=== PATIENT | male | born 1950 | race Caucasian/White ===

== ENCOUNTER → 2018-08-12 | Outpatient (CLI) | payer OTHER ==
[~2018-08-12] MED LIST: ASPIR 8181 M1 PO; CALCIUM 500 +1 EAC5 PO; CENTRUM SILVER1 EAC2 PO; ELIQUIS5 MG PO; FISH OIL 1,001000 M2 PO; FLONASE 0.05%50 MCG NASAL; HYDROCHLOROTHIA25 M2 PO; MOBIC7.5 MG PO; NORVASC5 MG PO; PRINIVIL20 MG PO; VIAGRA100 MG PO; ZOCOR20 MG PO
--- NOTE | ~2018-08-12 | SLE ---
[facility] [place] [address] POLYSOMNOGRAPHY STUDY Name: NUZHATNIKITA Room #: REG [facility]#: [id number] Admission: 08/12/18 Attend Phys: Jl Gillette MD Discharge: Date of : 46 Report #: [id number] THIS REPORT FOR: //name// CC: Jl Rice MD DATE OF SERVICE: 08/12/2018 ATTENDING PHYSICIAN: Dr. Mario Rice. The patient is a 68-year-old who weighs 213 pounds and is 73 inches tall. The patient's BMI was 28. The patient underwent sleep study at [facility]. The patient has history of paroxysmal atrial fibrillation. The patient's Gresham score is 4/24. During the night study, the patient spent 454 minutes in bed and slept for 357 minutes with a sleep efficiency of 78%. Sleep latency was 4.5 minutes with a REM latency of 63 minutes. Overall, sleep architecture showed increased stage 1 and stage 2 sleep, absent slow wave and normal REM sleep. During the night study, the patient had 3 obstructive apneas, no mixed or central apneas and 8 hypopneas. The patient's apnea index was 1.8 per hour. REM index of 0.9 per hour with a supine index of 8 per hour. The patient normally does not sleep in supine position. EKG monitoring revealed an average heart rate of 50 beats per minute with a maximum of 76 beats per minute. No sustained arrhythmias were observed. PLMS were seen at an index of 51 per hour and 3 per hour caused EEG arousals. Nocturnal oximetry study revealed an average oxygen saturation of 96% with a lowest of 89%. No clinically significant desaturation of less than 89% were observed. Due to low AHI, the patient did not meet the split night criteria for CPAP initiation. IMPRESSION: 1. No clinically significant sleep disordered breathing. The patient's AHI for the entire night was 1.8 per hour. 2. Severe periodic limb movements without any significant EEG arousals. 3. No clinically significant nocturnal hypoxia. RECOMMENDATIONS: [facility] [address] [place] [address] POLYSOMNOGRAPHY STUDY Name: GIOVANNI NOLAND Room #: REG [facility]#: [id number] Admission: 08/12/18 Attend Phys: Jl Gillette MD Discharge: Date of : 46 Report #: [id number] 1. The patient did not meet the split night criteria for CPAP initiation due to very low AHI. 2. Avoid supine sleep. 3. Avoid [employer] depressants. 4. Weight loss is advised. 5. Patient should also be evaluated for symptoms of restless legs during day. <ELECTRONICALLY SIGNED> By: Jl Gillette MD 08/14/18 [id number] Jl Gillette MD /nt
== END ==
LOC: SLEEPLAB 08-11 12:07
DX: G47.61 Periodic limb movement disorder (principal); I48.0 Paroxysmal atrial fibrillation

== ENCOUNTER → 2019-06-24 | Outpatient (CLI) | payer OTHER ==
--- NOTE | 2019-06-24 14:31 | 2DMMODE ---
[address] [address] 2 D/M-MODE ECHOCARDIOGRAM Name: GIOVANNI NOLAND Room #: REG [facility]#: [id number] Admission: 06/24/19 Attend Phys: Mario Rice Discharge: Date of : 46 Date of Service: 06/24/19 1431 Report #: [id number] THIS REPORT FOR: //name// APPROVED REPORT Study performed: 06/24/2019 13:11:29 EXAM: Comprehensive 2D, Doppler, and color-flow Echocardiogram Patient Location: Out-Patient Room #: Echo Lab 2 Status: routine BSA: 2.24 HR: 52 bpm BP: 122/68 mmHg Rhythm: Bradycardia Other Information Study Quality: Good Indications Atrial Fibrillation Hx; Ablation Volumes Left Atrial Volume (Systole) LA ESV Index: 38.00 mL/m2 Tricuspid Valve RAP Estimate: 5.00 mmHg Left Ventricle The left ventricle is normal size. There is normal LV segmental wall motion. There is normal left ventricular wall thickness. The left ventricular systolic function is normal. LVEF is 55-60%. The left ventricular diastolic function is normal. Right Ventricle The right ventricle is normal size. The right ventricular systolic function is normal. Atria Left atrium is mildly dilated. Right atrium is mildly dilated. Aortic Valve [address] [place] [address] 2 D/M-MODE ECHOCARDIOGRAM Name: GIOVANNI NOLAND A Room #: REG [facility]#: [id number] Admission: 06/24/19 Attend Phys: Mario Rice Discharge: Date of : 46 Date of Service: 06/24/19 143 Report #: [id number] The aortic valve is normal in structure. Mild aortic regurgitation. There is no aortic valvular stenosis. Mitral Valve The mitral valve is normal in structure. Mild mitral regurgitation. No evidence of mitral valve stenosis. Tricuspid Valve The tricuspid valve is normal in structure. Trace tricuspid regurgitation. Pulmonic Valve Pulmonic valve is not well visualized. Great Vessels The aortic root is normal in size. Ascending aorta is not well visualized. IVC is normal in size and collapses >50% with inspiration. Pericardium There is no pericardial effusion. <Conclusion> The left ventricle is normal size. There is normal left ventricular wall thickness. The left ventricular systolic function is normal. LVEF is 55-60%. The right ventricle is normal size. Left atrium is mildly dilated. Right atrium is mildly dilated. The aortic valve is normal in structure. The mitral valve is normal in structure. Mild aortic regurgitation. Mild mitral regurgitation. No evidence of mitral valve stenosis. <ELECTRONICALLY SIGNED> By: Mario Rice MD 06/24/191430 30 1431 Mario Rice MD /MATI
== END ==
LOC: CV 11:06
DX: I08.0 Rheumatic disorders of both mitral and aortic valves (principal); I48.91 Unspecified atrial fibrillation

== ENCOUNTER → 2019-12-23 | Outpatient (CLI) | payer OTHER | LOC: SJCVC 14:42 | DX: I45.10 Unspecified right bundle-branch block (principal); I48.0 Paroxysmal atrial fibrillation; I10 Essential (primary) hypertension; R94.31 Abnormal electrocardiogram [ECG] [EKG] ==

== ENCOUNTER → 2020-06-28 | Outpatient (CLI) | payer OTHER | LOC: SJCVC 16:31 | PROVIDERS: ATTEND Internal Medicine Cardiovascular Disease | DX: R94.31 Abnormal electrocardiogram [ECG] [EKG] (principal); I45.10 Unspecified right bundle-branch block; I44.0 Atrioventricular block, first degree; R00.1 Bradycardia, unspecified; I48.0 Paroxysmal atrial fibrillation; I48.3 Typical atrial flutter; I10 Essential (primary) hypertension; I25.10 Atherosclerotic heart disease of native coronary artery without angina pectoris; E78.00 Pure hypercholesterolemia, unspecified; Z79.899 Other long term (current) drug therapy ==

== ENCOUNTER → 2021-05-30 | Outpatient (CLI) | payer OTHER ==
[~2021-05-30] MED LIST changes: +BENADRYL25 MG PO; +CLARITIN10 M3 PO; +MULTAQ 400 MG400 MG PO; +ZOCOR 10 MG TAB10 M1 PO
[2021-05-30 09:14] LABS: HEMATOCRIT 41.2 % (42.0-52.0); HEMOGLOBIN 14.5 gm/dL (14.0-18.0); MCH 32.9 pg (26.0-34.0); MCHC 35.1 g/dL (28.0-37.0); MCV 93.7 fL (80.0-100.0); RBC 4.4 mil/uL (4.50-6.00); RDW 13.2 % (10.5-14.5); WBC 5.7 thou/uL (4.0-11.0)
[2021-05-30 09:20] LABS: URINE BILIRUBIN NEGATIVE (Negative); URINE BLOOD NEGATIVE (Negative); URINE CLARITY CLEAR; URINE COLOR YELLOW; URINE GLUCOSE-RANDOM* NEGATIVE (Negative); URINE KETONES NEGATIVE (Negative); URINE LEUKOCYTES-REFLEX NEGATIVE (Negative); URINE NITRITE-REFLEX NEGATIVE (Negative); URINE PROTEIN (DIPSTICK) NEGATIVE (Negative); URINE UROBILINOGEN 0.2 E.U./dl (0.2-1.0)
[2021-05-30 09:28] LABS: INR 1.09; PROTIME 11.8 Seconds (10.5-12.1)
[2021-05-30 09:33] LABS: CALCIUM 8.4 mg/dL (8.5-10.1)
== END ==
LOC: PAC 08:23
PROVIDERS: ATTEND Orthopaedic Surgery
DX: Z01.812 Encounter for preprocedural laboratory examination (principal); M17.12 Unilateral primary osteoarthritis, left knee; Z91.048 Other nonmedicinal substance allergy status; I10 Essential (primary) hypertension

== ENCOUNTER 2021-06-12 09:43 | Observation (INO) | payer OTHER ==
[~2021-06-12] VITALS: Ht 185.4 cm; Wt 103.9 kg
[2021-06-12 10:40] VITALS: BP 123/64
[2021-06-12 16:51] VITALS: BP 132/78
[2021-06-12 19:07] VITALS: BP 113/71
--- NOTE | 2021-06-12 19:49 | NUR ---
PT ARRIVED AT 1600 FROM OR. hAD PAIN AT LEFT KNEE AND LEFT HIP GAVE PAIN MED AND POLAR PACK. PAIN DECREASED TO A 4. pT ATE DINNER. USING IS. bED IN LOW POSITION. pT CAN GET UP TO BEDSIDE COMMODE. cALL LIGHT WITHIN REACH
--- NOTE | 2021-06-13 02:29 | NUR ---
LEFT KNEE WITH HEDY DRSG INTACT. POLAR FLETCHER IN PLACE. PT GETTING NORCO FOR MODERATE PAIN WITH RELIEF. USING URINAL, ADEQUATE U/O. AFEBRILE. ON ROOM AIR, HE IS USING I/S W/A.CONTINUES ON IV FLUIDS. NO FURTHER CONCERNS.
[2021-06-13 07:45] VITALS: BP 106/56
--- NOTE | 2021-06-13 09:32 | NUR ---
ASSESSMENT: CM REVIEWED CHART AND SPOKE WITH PATIENT AT THE BEDSIDE. PT IS ALERT AND ORIENTED X4. PT IS S/P L TKA. PT REPORTS THAT HE LIVES IN A HOUSE WITH HIS . PT REPORTS HAVING ABOUT 3 STEPS TO ENTER WITH NO STEPS ONCE INSIDE. PT REPORTS THAT HE HAS A BORROWED WALKER AT HOME AND PLANS ON USING THIS. CM DISCUSSED CM CAN GET HIM A WALKER THROUGH HIS INSURANCE BUT HE DECLINES. PT STATES HE HAS OUTPATIENT THERAPY ARRANGED AT [facility] IN [facility] TO BEGIN ON SATURDAY. CM DISCUSSED ROLE, PT DOES NOT ANTICIPATE HAVING ANY NEEDS FROM CM PRIOR TO DISCHARGE. PHYSICAL THERAPY IS TO WORK WITH PATIENT TODAY, EVAL PENDING.
--- NOTE | 2021-06-13 11:03 | NUR ---
ASSUMED PT CARE THIS AM. PT IS ALERT & ORIENTED X4. PT HAS IV SITE ON L FA. PT HAS [facility] KNEE HIGH BILATERAL, POLAR PACK, SCD. PT IS ON ROOM AIR. GIVEN MEDICATION PRIOR WORKING WITH PHYSICAL THERAPY. PER PHYSICAL THERAPY OK FOR DC. PT AT THE BEDSIDE. WILL REMOVE IV. PT ON THE BED, BED ON THE LOWEST POSITION, SIDE RAILS UP, CALL LIGHT WITHIN REACH. WILL CONTINUE TO MONITOR PT. FOLLOW POC.
[2021-06-13 11:15] VITALS: BP 106/56
--- NOTE | 2021-06-15 07:30 | O ---
[facility] [place] [address] OPERATIVE REPORT Name: GIOVANNI NOLAND Room #: 434-P [facility] Marci Flanagan#: [id number] Admission: 06/12/21 Attend Phys: Jose A Miller MD Discharge: 06/13/21 Date of : 46 Report #: [id number] THIS REPORT FOR: cc: Marcos Price,Marcos Rosales,Jose A Hankins MD ~ DATE OF SERVICE: 06/12/2021 PREOPERATIVE DIAGNOSIS: Left knee osteoarthritis. POSTOPERATIVE DIAGNOSIS: Left knee osteoarthritis. PROCEDURE: Left total knee arthroplasty using Navio robotic assistance. SURGEON: Jose A Miller MD. TANK TRUCK MILK RECEIVER: Sosa Oneill PA-C. INDICATION FOR TANK TRUCK MILK RECEIVER: Throughout the case, extensive retraction, manipulation of the knee was required. This was afforded to me by my library serials assistant. ANESTHESIA: LMA with adductor canal block. IMPLANTS: A [employer] size 8 Journey II BCS cobalt chrome femur, size 6 tibia, size 9 constrained polyethylene and size 35 patella. TOURNIQUET TIME: 56 minutes. ESTIMATED BLOOD LOSS: 25 mL. COMPLICATIONS: None. SPECIMENS: None. CONDITION UPON LEAVING THE OR: Stable. INDICATIONS FOR PROCEDURE: The patient is a 71-year-old gentleman with left knee osteoarthritis. He had failed conservative measures and after discussion with him, he elected for left total knee arthroplasty. DESCRIPTION OF PROCEDURE: Risks, benefits, alternatives, complications were discussed in detail with the patient including but not limited to risk of anesthesia, risk of damage to nerves, arteries, blood vessels, risk for infection, bleeding, DVT, PE, and need for reoperation. Informed consent was obtained from the patient. Left knee was appropriately marked in the preoperative holding area. IV Ancef was given for preoperative antibiotics. He [address] [address] OPERATIVE REPORT Name: GIOVANNI NOLAND Room #: 434-P [facility] Marci Flanagan#: [id number] Admission: 06/12/21 Attend Phys: Jose A Miller MD Discharge: 06/13/21 Date of : 46 Report #: [id number] was brought to the operating room and placed in the supine position on the operating room table. LMA anesthesia was induced without complication. Tourniquet was placed on the left thigh. Left lower extremity was prepped and draped in normal sterile fashion. Timeout was performed properly identifying the patient and procedure as well as the instrumentation and implants. All in the operating room in agreement. Left lower extremity was exsanguinated, tourniquet was inflated. Tourniquet time was 56 minutes. Standard midline approach to the knee was made with 10 blade through the skin. Dissection was taken down sharply to the fascia and deep flaps were developed medially and laterally. Fresh 10 blade was used to make a medial parapatellar arthrotomy and the knee was inspected. There was moderate to severe tricompartmental osteoarthritis. ACL and PCL were removed sharply. Reference pins were placed in the femur and the tibia. The knee was then digitally mapped using the [employer] robotic system. Intraoperative plan was made. We sized the size 8 femur, the size 6 tibia and a 10 spacer. After acceptance of the intraoperative plan, the distal femoral cut was made with Navio bur. Distal femoral cutting block was pinned in place and chamfer cuts were made. Attention was turned to the tibia. Remainder of the menisci removed with Bovie cautery. Tibial resection guide was pinned in place using Navio for placement. Tibial resection was made. Flexion and extension gaps were checked and found to have good balance in flexion and extension both medially and laterally. Tibia sized, found to be a size 6. A size 6 tibial trial was placed, pinned and punch. A size 8 femoral trial was placed and box cut was made. This was then trialed with a size 9 polyethylene, size 9 polyethylene demonstrated good balance medially throughout range of motion with 1-2 mm of laxity laterally. He did demonstrate up to 3 mm. It was felt we can make up for this with a constrained implant, 9 mm of bone was resected from the posterior surface of the patella and a size 35 patellar trial button was placed, knee was taken through range of motion, found to be stable, found to have good patellar tracking. Trial components were removed. Bone ends were thoroughly irrigated with normal saline. A final size 6, tibia size 8 Journey II BCS cobalt chrome femur and a size 35 patella were cemented in place using standard cementation techniques. While the cement cured, a periarticular injection consisting of morphine, ropivacaine, epinephrine, Toradol was placed around the knee joint capsule. After the cement cured, the tourniquet was deflated. Hemostasis was obtained with Bovie cautery. Final size 9 constrained polyethylene was placed. A gram of vancomycin was placed deep in the joint. Fascia was closed with 0 Vicryl. Skin was closed with 2-0 Vicryl, 3-0 Monocryl. Dermabond and a HEDY dressing was applied. The patient tolerated this procedure well and went to recovery room under care of Anesthesia postoperatively. <ELECTRONICALLY SIGNED> By: Jose A Miller MD 06/15/21 0730 [id number] Jose A Miller MD /nt
== END 2021-06-13 12:09 | disposition home or self-care (01) ==
LOC: OR 09:43 → TBA 09:43 → OR 11:21 → 4S 16:05
PROVIDERS: ADMIT Orthopaedic Surgery; ATTEND Orthopaedic Surgery
DX: M17.12 Unilateral primary osteoarthritis, left knee (principal); Z20.822 Contact with and (suspected) exposure to COVID-19; Z79.899 Other long term (current) drug therapy
CPT/HCPCS: 50010; 50101; 50415; 50954; 51130; 51225; 51320; 53000; 53078; 54118; 56527; 56528; 57095; 57103; 57110; 57127; 57180; 58239; 62110; 62900; 70005

== ENCOUNTER → 2021-06-27 | Outpatient (CLI) | payer OTHER | LOC: SJCVC 09:13 | PROVIDERS: ATTEND Internal Medicine Cardiovascular Disease | DX: I48.0 Paroxysmal atrial fibrillation (principal); R00.0 Tachycardia, unspecified; I10 Essential (primary) hypertension; R73.9 Hyperglycemia, unspecified; E78.00 Pure hypercholesterolemia, unspecified; Z79.899 Other long term (current) drug therapy; Z72.89 Other problems related to lifestyle ==

== ENCOUNTER → 2021-07-25 | Outpatient (CLI) | payer OTHER | LOC: SJCVC 09:38 | PROVIDERS: ATTEND Internal Medicine | DX: R94.31 Abnormal electrocardiogram [ECG] [EKG] (principal); I44.0 Atrioventricular block, first degree; I48.0 Paroxysmal atrial fibrillation; I48.3 Typical atrial flutter; I47.2 Ventricular tachycardia; Z79.899 Other long term (current) drug therapy; Z72.89 Other problems related to lifestyle ==

== ENCOUNTER → 2021-08-02 | Outpatient (CLI) | payer OTHER | LOC: SJCVCIMAG 07:17 | PROVIDERS: ATTEND Internal Medicine Cardiovascular Disease | DX: I45.10 Unspecified right bundle-branch block (principal); R94.31 Abnormal electrocardiogram [ECG] [EKG]; I48.91 Unspecified atrial fibrillation; R53.83 Other fatigue; R00.2 Palpitations; E78.00 Pure hypercholesterolemia, unspecified; I10 Essential (primary) hypertension; Z72.89 Other problems related to lifestyle; Z79.899 Other long term (current) drug therapy ==